=== PATIENT | female | born 1955 | race Caucasian/White ===

== ENCOUNTER → 2017-01-24 | Outpatient (CLI) | payer BC ==
--- NOTE | 2017-02-05 07:44 | MM ---
Reason for exam: screening (asymptomatic). Last mammogram was performed 1 year and 11 months ago. History: Patient is postmenopausal. Family history of breast cancer in 3 maternal aunts and breast cancer in paternal aunt. Physical Findings: A clinical breast exam by your physician is recommended on an annual basis and results should be correlated with mammographic findings. MG Screening Mammo w CAD Bilateral CC and MLO view(s) were taken. Prior study comparison: February 15, 2015, mammogram, performed at [facility]. January 29, 2013, mammogram, performed at [facility]. There are scattered fibroglandular densities. There is chronic nodularity bilaterally. No significant changes when compared with prior studies. ASSESSMENT: Benign, BI-RAD 2 RECOMMENDATION: Routine screening mammogram of both breasts in 1 year.
== END | disposition home or self-care (01) ==
LOC: RADMAMWWP 15:49
PROVIDERS: ATTEND Internal Medicine
DX: Z12.31 Encounter for screening mammogram for malignant neoplasm of breast (principal)

== ENCOUNTER → 2017-10-03 | Outpatient (CLI) | payer BC ==
[2017-10-03 10:53] LABS: HCT 38.1 % (34.0-46.0); HGB 12.7 gm/dL (11.4-16.0); MCH 31.4 pg (25.0-35.0); MCHC 33.3 g/dL (31.0-37.0); MCV 94.3 fL (80.0-100.0); Mean Platelet Volume 6.6; Platelet Count 330 k/uL (150-450); RBC 4.05 m/uL (3.80-5.40); RDW 13.2 % (11.5-15.5); WBC 6.6 k/uL (3.8-10.6)
[2017-10-03 11:01] LABS: Appearance,Urine Clear (Clear); Bilirubin,Urine Negative (Negative); Blood,Urine Negative (Negative); Color,Urine Light Yellow; Glucose,Urine (UA) Negative (Negative); Ketones,Urine Negative (Negative); Leukocyte Esterase,Urine Negative (Negative); Nitrite,Urine Negative (Negative); Protein,Urine Negative (Negative); Urobilinogen,Urine <2.0 mg/dL (<2.0)
[2017-10-03 11:10] LABS: Anion Gap 5 mmol/L; Blood Urea Nitrogen 15 mg/dL (7-17); Carbon Dioxide 28 mmol/L (22-30); Chloride 107 mmol/L (98-107); Glucose 93 mg/dL (74-99); Potassium 4.7 mmol/L (3.5-5.1); Sodium 140 mmol/L (137-145)
== END | disposition home or self-care (01) ==
LOC: LABPAT 10:12
PROVIDERS: ATTEND Urology
DX: Z01.812 Encounter for preprocedural laboratory examination (principal); N39.3 Stress incontinence (female) (male); R35.0 Frequency of micturition; R30.9 Painful micturition, unspecified; Z79.899 Other long term (current) drug therapy
CPT/HCPCS: 80048; 81003; 85027; 87086

== ENCOUNTER → 2017-10-06 | Outpatient (CLI) | payer BC | END | disposition home or self-care (01) | LOC: LABPAT 08:22 | PROVIDERS: ATTEND Urology | DX: Z01.818 Encounter for other preprocedural examination (principal) | CPT/HCPCS: 93005 ==

== ENCOUNTER 2017-10-10 08:22 | Day surgery (SDC) | payer BC ==
[2017-10-03 12:20] VITALS: BMI 32.2
[~2017-10-10 08:22] MED LIST: DEXAMETHASONE SOD PHOSPHATE 10 MG/ML 1 ML VIAL IV ONE; HYDROmorphone 0.5 MG/0.5 ML SYRINGE IVP PRN; LACTATED RINGERS 1,000 ML IV SCH; ONDANSETRON 4 MG/2 ML VIAL IVP ONE
[2017-10-10] MEDS ORDERED: SCOPOLAMINE 1.5MG/72HR PATCH TRANSDERM STA (08:32)
[2017-10-10] MEDS ORDERED: LACTATED RINGERS 1,000 ML IV ONE ×3 (08:36→11:06)
[2017-10-10] MEDS ORDERED: LIDOCAINE 1% 20 ML VIAL (10MG/ML) FOR IV START INTRADERMA ONE (08:37)
[2017-10-10] MEDS ORDERED: SUCCINYLCHOLINE CHLORIDE 100 MG/5 ML SYR IV ONE (10:25)
[2017-10-10] MEDS ORDERED: KETOROLAC 30 MG/ML 1 ML VIAL ONE (10:25)
[2017-10-10] MEDS ORDERED: PHENYLEPHRINE-0.9% NACL SYG 1 MG/10 ML SYRINGE ONE (10:25)
[2017-10-10] MEDS ORDERED: fentaNYL (PF) 50 MCG/ML 2 ML AMP ONE (10:25)
[2017-10-10] MEDS ORDERED: PROPOFOL 10 MG/ML 20 ML VIAL IV ONE (10:25)
[2017-10-10] MEDS ORDERED: ROCURONIUM BROMIDE 10 MG/ML 10 ML VIAL IV ONE (10:25)
[2017-10-10] MEDS ORDERED: LIDOCAINE 1% INJ 10MG/ML (20 ML MDV) ONE (10:25)
[2017-10-10] MEDS ORDERED: diphenhydrAMINE 50 MG/ML 1 ML VIAL ONE (10:25)
[2017-10-10] MEDS ORDERED: MIDAZOLAM 2 MG/2 ML VIAL ONE (10:25)
[2017-10-10] MEDS: ceFAZolin 1,000 MG in DEXTROSE/WATER 1 50ML.BAG IVPB ONE ×2 (10:30→10:37)
[2017-10-10] MEDS ORDERED: BACITRACIN 500 UNIT/GM OINT 28.4 GM TUBE TOPICAL ONE ×2 (10:39→10:47)
[2017-10-10] MEDS ORDERED: VASOPRESSIN 20 UNIT/ML 1 ML VIAL SQ ONE (10:40)
[2017-10-10] MEDS ORDERED: GENTAMICIN 80 MG in SODIUM CHLORIDE 0.9% 500 ML IRRIGATION ONE (10:41)
--- NOTE | 2017-10-10 11:16 | P.OP ---
Date of Procedure: 10/10/17 Preoperative Diagnosis: Stress urinary incontinence Postoperative Diagnosis: Same Procedure(s) Performed: Trans-obturator tape (obtyrx2) , cystoscopy Anesthesia: KATHE Surgeon: Chandan Matos Estimated Blood Loss (ml): 25 Pathology: none sent Condition: stable Disposition: PACU Indications for Procedure: The patient is a 62-year-old female with documented stress urinary incontinence who comes for a trans-obturator tape risk complications alternatives including the mesh controversy have been discussed Description of Procedure: The patient is brought to the operating suite she is given a successful general endotracheal anesthesia. She's placed lithotomy position with a sterile prep and drape. The labia are sewn laterally with 2-0 silk. A Engle catheters introduced sterilely. A vaginal speculum was placed. 2 incisions at the inguinal crease at the level clitoris bilaterally are made. I then elevated the anterior vaginal mucosa off the submucosa with a mixture of 20 units of Pitressin and 200 mL of saline. 10 mL was used. A midline suburethral incision is made. I dissect lateral to the bladder neck bilaterally with Metzenbaum scissors. I then pass the graft introducers through the inguinal incisions into the obturator foramen around the issue pubic ramus into the vaginal space bilaterally making sure not to buttonhole the vagina. I then it perform cystoscopy to make sure there is no evidence of penetration of the introducer into the bladder and there is none. I then attached the grafted introducers and pull the graft back through the obturator foramen and inguinal crease. The graft lay in the mid urethra nicely. I removed the redundant graft in sheathing. The vaginal mucosa was closed with 3-0 Vicryl. The inguinal incisions are closed with 4-0 Vicryl. The urine remains clear. Blood loss is 25 mL. The patient tolerated the procedure well awake and returned recovery room good condition. She'll be placed in the hospital postoperatively.
[2017-10-10] MEDS ORDERED: MORPHINE SULFATE 4 MG/ML SYRINGE IVP ONE (11:53)
[2017-10-10] MEDS ORDERED: ONDANSETRON 4 MG/2 ML VIAL IVP ONE (11:53)
[2017-10-10] MEDS: DEXTROSE 5%-0.45% NACL 1,000 ML IV SCH (12:42)
[2017-10-10] MEDS: METHIMAZOLE 5 MG TAB PO SCH (22:05)
[2017-10-10] MEDS: KETOROLAC 30 MG/ML 1 ML VIAL IVP PRN (22:09)
[2017-10-11] MEDS: DEXTROSE 5%-0.45% NACL 1,000 ML IV SCH (01:50)
[2017-10-11 04:23] VITALS: TEMP 97.9
[2017-10-11] MEDS ORDERED: PANTOPRAZOLE 40 MG TABLET PO SCH (09:00)
[2017-10-11] MEDS ORDERED: LISINOPRIL 10 MG TAB PO SCH (09:00)
[2017-10-11 09:11] VITALS: BP 114/61; PULSE 60; RESP 17
[2017-10-11] MEDS: METHIMAZOLE 5 MG TAB PO SCH (09:58)
[2017-10-11] MEDS: KETOROLAC 30 MG/ML 1 ML VIAL IVP PRN (10:03)
--- NOTE | 2017-10-11 11:52 | P.DS ---
Providers Attending physician: Chandan Matos Primary care physician: [facility] Course: The patient is 62 and underwent trans-obturator tape for her stress urinary incontinence 10/10/2017 she had an uneventful postoperative course. The catheter and packing were removed this morning. She has voided without difficulty. Her residuals are minimal. Her pain is minimal. Her vital signs are stable. She'll be discharged home. Postoperative instructions have been given. She'll be seen in the office in one week. He has been given a prescription of [place] but take it as needed. Patient Condition at Discharge: Good Plan - Discharge Summary Discharge Rx Participant: No New Discharge Prescriptions: No Action Cholecalciferol (Vitamin D3) [Vitamin D3] 2,000 unit PO DAILY Calcium Carbonate/Vitamin D3 [Calcium 600-Vit D3 200 Tablet] 2 each PO DAILY Aspirin 81 mg PO DAILY Methimazole [Tapazole] 5 mg PO BID Omeprazole Magnesium [PriLOSEC OTC] 20 mg PO DAILY Lisinopril [Zestril] 10 mg PO DAILY Discharge Medication List Aspirin 81 mg PO DAILY 10/03/17 [History] Calcium Carbonate/Vitamin D3 [Calcium 600-Vit D3 200 Tablet] 2 each PO DAILY [History] Cholecalciferol (Vitamin D3) [Vitamin D3] 2,000 unit PO DAILY 10/03/17 [History] Lisinopril [Zestril] 10 mg PO DAILY 10/03/17 [History] Methimazole [Tapazole] 5 mg PO BID 10/03/17 [History] Omeprazole Magnesium [PriLOSEC OTC] 20 mg PO DAILY 10/03/17 [History] Follow up Appointment(s)/Referral(s): Chandan Matos MD [STAFF PHYSICIAN] - 1 Week Discharge Disposition: HOME SELF-CARE
== END 2017-10-11 12:40 | disposition home or self-care (01) ==
LOC: OR 08:22 → EDSTATUS 10:15 → 6PED 11:06 → OR 10-11 12:40
PROVIDERS: ATTEND Urology
DX: N39.3 Stress incontinence (female) (male) (principal); I10 Essential (primary) hypertension; K21.9 Gastro-esophageal reflux disease without esophagitis; M81.0 Age-related osteoporosis without current pathological fracture; Z79.82 Long term (current) use of aspirin; Z79.899 Other long term (current) drug therapy; Z88.2 Allergy status to sulfonamides
CPT/HCPCS: 57288; C1771; J2250; J2270; J1200; J1580; J1100; J2405; J2001; J3010; J1885 ×2; J0690; J2370; J0330; J2704

== ENCOUNTER → 2018-10-11 | Day surgery (SDC) | payer BC ==
[2018-10-10 11:25] VITALS: BMI 32.8
[~2018-10-11] MED LIST changes: -DEXAMETHASONE SOD PHOSPHATE 10 MG/ML 1 ML VIAL IV ONE; -HYDROmorphone 0.5 MG/0.5 ML SYRINGE IVP PRN; +LIDOCAINE 1% 20 ML VIAL (10MG/ML) FOR IV START INTRADERMA PRN; -ONDANSETRON 4 MG/2 ML VIAL IVP ONE; +PROPOFOL 10 MG/ML 20 ML VIAL IV ONE
[2018-10-11 09:45] VITALS: RESP 16; TEMP 98.8
--- NOTE | 2018-10-11 10:33 | P.PCN ---
Date of Procedure: 10/11/18 Procedure(s) Performed: BRIEF HISTORY: Patient is a 63-year-old, pleasant, white female, scheduled for an upper endoscopy as a part of long-standing history of GERD and surveillance of Minaya's esophagus. PROCEDURE PERFORMED: Esophagogastroduodenoscopy with biopsy. PREOPERATIVE DIAGNOSIS: GERD/Minaya's esophagus. IV sedation per anesthesia. PROCEDURE: After informed consent was obtained, the patient was brought into the endoscopy unit. IV sedation was administered by Anesthesia under continuous monitoring. Initially the Olympus GIF-140 video endoscope was inserted into the mouth. Esophagus intubated without any difficulty. It was gradually advanced into the stomach and duodenum and carefully examined. The bulb and the second part of the duodenum appeared normal. The scope at this time was withdrawn to the stomach, adequately insufflated with air, and upon careful examination, mucosa of the antrum, body, cardia and the fundus appeared normal. Multiple gastric polyps noted in the body of the stomach which were biopsied. The scope was then withdrawn into the esophagus. The GE junction was located at 39 cm from the incisors. There was a short island of Minaya's appearing mucosa just proximal to the GE junction measuring 2-3 mm which was biopsied. The rest of the esophagus appeared normal. There were no erosions or ulcerations seen and the patient tolerated the procedure well. IMPRESSION: 1. Short segment Minaya's esophagus status post biopsy. 2. Multiple small gastric polyps 3. Moderate size hiatal hernia. RECOMMENDATIONS: The findings of this examination were discussed with the patient well as her family. She was advised to follow with the biopsy results. She will continue with Prilosec 20 mg daily and follow antireflux measures. If the biopsy confirms presence of Minaya's esophagus, she can have a repeat upper endoscopy in 2-3 years.
[2018-10-11 10:54] VITALS: BP 129/77; PULSE 61
== END | disposition home or self-care (01) ==
LOC: ORWHC2ENDO 09:02
PROVIDERS: ATTEND Internal Medicine Gastroenterology
DX: K22.70 Barrett's esophagus without dysplasia (principal); K31.7 Polyp of stomach and duodenum; K44.9 Diaphragmatic hernia without obstruction or gangrene; I10 Essential (primary) hypertension; Z88.2 Allergy status to sulfonamides; Z79.899 Other long term (current) drug therapy; Z79.82 Long term (current) use of aspirin; Z96.642 Presence of left artificial hip joint
CPT/HCPCS: 88305; 43239; J2704

== ENCOUNTER → 2019-03-06 | Outpatient (CLI) | payer BC ==
[2019-03-06 09:26] LABS: HCT 38.5 % (34.0-46.0); HGB 12.7 gm/dL (11.4-16.0); MCV 96.9 fL (80.0-100.0); Mean Platelet Volume 6.4; Platelet Count 363 k/uL (150-450); RBC 3.98 m/uL (3.80-5.40); RDW 13.4 % (11.5-15.5)
[2019-03-06 09:40] LABS: African American GFR (CKD) >90 (>60 ml/min/1.73 sqM); Anion Gap 7 mmol/L; Blood Urea Nitrogen 10 mg/dL (7-17); Carbon Dioxide 24 mmol/L (22-30); Chloride 110 mmol/L (98-107); Potassium 4.4 mmol/L (3.5-5.1); Sodium 141 mmol/L (137-145)
== END | disposition home or self-care (01) ==
LOC: LABWHC1 08:55
PROVIDERS: ATTEND Internal Medicine Interventional Cardiology
DX: Z01.812 Encounter for preprocedural laboratory examination (principal); I10 Essential (primary) hypertension; E78.1 Pure hyperglyceridemia
CPT/HCPCS: 36415; 80051; 82565; 84520; 85027

== ENCOUNTER 2019-03-11 10:56 | Day surgery (SDC) | payer BC ==
[2019-03-06 09:14] VITALS: BMI 32.2
[~2019-03-11 10:56] MED LIST changes: +ALPRAZolam 0.25 MG TAB PO PRN; +ALPRAZolam 0.5 MG TAB PO PRN; +ASPIRIN 325 MG TAB PO STA; +ATORVASTATIN 80 MG TAB PO STA; -LACTATED RINGERS 1,000 ML IV SCH; -LIDOCAINE 1% 20 ML VIAL (10MG/ML) FOR IV START INTRADERMA PRN; +NITROGLYCERIN SL TABS 0.4 MG TAB SUBLINGUAL PRN; -PROPOFOL 10 MG/ML 20 ML VIAL IV ONE; +SODIUM CHLORIDE 0.9% 1,000 ML in EMPTY BAG 1 BAG IV ONE
[2019-03-11 11:45] VITALS: PULSE 62; TEMP 98.3
[2019-03-11] MEDS ORDERED: MIDAZOLAM (PF) 2 MG/2 ML VIAL IV ONE (12:32)
[2019-03-11] MEDS ORDERED: LIDOCAINE 1% INJ 10MG/ML (20 ML MDV) SQ ONE (12:34)
[2019-03-11] MEDS ORDERED: VERAPAMIL SYRINGE (5 MG/10 ML) IV ONE (12:35)
[2019-03-11] MEDS ORDERED: IOPAMIDOL-370 100ML BTL INJ ONE (12:44)
[2019-03-11] MEDS ORDERED: RX INFO: IV CONTRAST WAS GIVEN 1 EACH MISC MISCELLANE PRN (12:50)
--- NOTE | 2019-03-11 12:55 | P.PCN ---
Date of Procedure: 03/11/19 Operative Findings: CARDIAC CATHETERIZATION PERFORMING PHYSICIAN: Bobby Mcfarland MD, RPVI PROCEDURE PERFORMED: 1. Selective right and left coronary angiogram 2. Left heart catheterization INDICATION: This is a 63-year-old female patient with hypertension who was experiencing symptoms of upper back discomfort with exertion concerning for severe coronary artery disease. She was brought today to undergo a heart catheterization to rule out severe CAD. COMPLICATION: None APPROACH: Right radial artery PROCEDURE DESCRIPTION: After obtaining an informed consent, the patient was brought to cardiac laboratory inspector. Local anesthesia was performed using lidocaine subcutaneously. The right radial artery was cannulated using Seldinger technique, the guidewire passed easily, following that we advanced a 5-Wolof sheath dilator assembly, the wire and dilator were removed and sheath was flushed. Following that, 2 mg of verapamil along with 5000 unit heparin were given. Selective right and left coronary angiogram using a 6-Wolof JR4 and JL 3.5 catheters. Following that we did left heart catheterization using 6-Wolof pigtail catheter. The procedure was completed there was no complication. SELECTIVE CORONARY ANGIOGRAM: The right coronary artery: Is a medium caliber vessel and nondominant vessel. Its angiographically normal. Left main: It is angiographically normal. The left circumflex: It is a large caliber vessel and its a dominant vessel. Its angiographically normal. The left circumflex gives rises into the first and second OM branches and both appeared to be angiographically normal distally bifurcates into PDA and PLV branches and both appeared to be angiographically normal. The left anterior descending artery: The LAD is angiographically normal in the proximal to midportion gives rises into a large diagonal branch which seems to be angiographically normal. HEMODYNAMICS: The LVEDP was 18 mmHg without a gradient across aortic valve CONCLUSION: #1 normal coronary angiogram POSTPROCEDURE MANAGEMENT: Medical treatment Follow-up with the patient
[2019-03-11] MEDS ORDERED: SODIUM CHLORIDE 0.9% 1,000 ML IV SCH (13:00)
[2019-03-11 16:45] VITALS: RESP 18
[2019-03-11 18:11] VITALS: BP 164/77
== END 2019-03-11 18:00 | disposition home or self-care (01) ==
LOC: CATHCVL 10:56
PROVIDERS: ATTEND Internal Medicine Interventional Cardiology
DX: R07.89 Other chest pain (principal); I10 Essential (primary) hypertension; M54.89 Other dorsalgia; E78.5 Hyperlipidemia, unspecified; Z79.82 Long term (current) use of aspirin; Z79.899 Other long term (current) drug therapy; Z88.2 Allergy status to sulfonamides
CPT/HCPCS: 93458; C1769 ×2; C1894; J2001; J1644; Q9967; J2250

== ENCOUNTER → 2020-10-20 | Outpatient (CLI) | payer MEDICARE ==
--- NOTE | 2020-10-21 10:34 | MM ---
Reason for exam: screening (asymptomatic). Last mammogram was performed 3 years and 9 months ago. History: Patient is postmenopausal. Family history of breast cancer in 3 maternal aunts and breast cancer in paternal aunt. Physical Findings: A clinical breast exam by your physician is recommended on an annual basis and results should be correlated with mammographic findings. MG 3D Screening Mammo W/Cad Bilateral CC and MLO view(s) were taken. Prior study comparison: January 24, 2017, bilateral MG screening mammo w CAD. February 15, 2015, mammogram, performed at [facility]. The breast tissue is heterogeneously dense. This may lower the sensitivity of mammography. There is no discrete abnormality. No significant changes when compared with prior studies. ASSESSMENT: Negative, BI-RAD 1 RECOMMENDATION: Routine screening mammogram of both breasts in 1 year.
== END | disposition home or self-care (01) ==
LOC: RADMAMWWP 09:50
PROVIDERS: ATTEND Internal Medicine
DX: Z12.31 Encounter for screening mammogram for malignant neoplasm of breast (principal); Z78.0 Asymptomatic menopausal state; Z80.3 Family history of malignant neoplasm of breast
CPT/HCPCS: 77063; 77067

== ENCOUNTER 2022-05-05 08:27 | Day surgery (SDC) | payer MEDICARE ==
[2022-05-03 10:24] VITALS: BMI 32.2
[~2022-05-05 08:27] MED LIST changes: -ALPRAZolam 0.25 MG TAB PO PRN; -ALPRAZolam 0.5 MG TAB PO PRN; -ASPIRIN 325 MG TAB PO STA; -ATORVASTATIN 80 MG TAB PO STA; +LACTATED RINGERS 1,000 ML IV SCH; -NITROGLYCERIN SL TABS 0.4 MG TAB SUBLINGUAL PRN; -SODIUM CHLORIDE 0.9% 1,000 ML in EMPTY BAG 1 BAG IV ONE
[2022-05-05 08:47] VITALS: RESP 16; TEMP 97
[2022-05-05] MEDS ORDERED: PROPOFOL 10 MG/ML 20 ML VIAL IV ONE (09:07)
[2022-05-05] MEDS ORDERED: LIDOCAINE 2% INJ 20 MG/ML (2 ML VIAL) ONE (09:07)
--- NOTE | 2022-05-05 09:20 | P.PCN ---
Date of Procedure: 05/05/22 Procedure(s) Performed: BRIEF HISTORY: Patient is a 67-year-old, pleasant, white female scheduled for an upper endoscopy as a part of evaluation of long-standing history of GERD and Minaya's esophagus.. She is presently on omeprazole 20 mg daily PROCEDURE PERFORMED: Esophagogastroduodenoscopy with biopsy. PREOPERATIVE DIAGNOSIS: . GERD and Minaya's esophagus IV sedation per anesthesia. PROCEDURE: After informed consent was obtained, the patient was brought into the endoscopy unit. IV sedation was administered by Anesthesia under continuous monitoring. Initially the Olympus GIF-140 video endoscope was inserted into the mouth. Esophagus intubated without any difficulty. It was gradually advanced into the stomach and duodenum and carefully examined. The bulb and the second part of the duodenum appeared normal. The scope at this time was withdrawn to the stomach, adequately insufflated with air, and upon careful examination, mucosa of the antrum, appeared normal. There were multiple gastric polyps noted in the body and fundus of the stomach which were biopsied. Mucosa of the body, cardia and the fundus appeared normal. The scope was then withdrawn into the esophagus. small hiatal hernia noted. The GE junction was located at 35 cm from the incisors. there were 2 tongues of Minaya's appearing mucosa extending 3-4 mm proximal to the GE junction which were biopsied. The rest of the esophagus appeared normal. There were no erosions or ulcerations seen and the patient tolerated the procedure well. IMPRESSION: 1. Small hiatal hernia and short segment Minaya's esophagus status post biopsy 2. Multiple gastric polyps status post biopsy RECOMMENDATIONS: The findings of this examination were discussed with the patient . as well as her family. She was advised to follow with the biopsy results. Continue with omeprazole 20 mg daily and follow antireflux measures. Recommend repeat upper endoscopy in 3 years.
[2022-05-05 09:51] VITALS: BP 145/63; PULSE 59
== END 2022-05-05 10:06 | disposition home or self-care (01) ==
LOC: ORWHC2ENDO 08:27
PROVIDERS: ATTEND Internal Medicine Gastroenterology
DX: K22.70 Barrett's esophagus without dysplasia (principal); I10 Essential (primary) hypertension; K44.9 Diaphragmatic hernia without obstruction or gangrene; K31.7 Polyp of stomach and duodenum; K29.50 Unspecified chronic gastritis without bleeding; K21.00 Gastro-esophageal reflux disease with esophagitis, without bleeding; Z98.890 Other specified postprocedural states
CPT/HCPCS: 88305; 43239; J2704; J2001

== ENCOUNTER → 2022-06-28 | Outpatient (CLI) | payer MEDICARE ==
--- NOTE | 2022-06-28 16:27 | US ---
EXAMINATION TYPE: US thyroid st tissue head/neck DATE OF EXAM: 06/28/2022 COMPARISON: NONE CLINICAL HISTORY: E04.2 NONTOXIC MULTINODULAR GOITER. Goiter. GLAND SIZE: Right Lobe: 4.3 x 2.1 x 1.8 cm Overall Parenchyma: heterogenous Left Lobe: 4.7 x 1.6 x 1.4 cm Overall Parenchyma: heterogeneous Isthmus Thickness: 0.33 cm NODULES RIGHT: # of nodules measured on right: 2 1. 0.7 X 0.6 x 0.6 cm, mid mid, solid or almost completely solid, hypoechoic nodule, which is as wi de as it is tall, with smooth margins, without echogenic foci. Prior size: No prior 2. 2.2 X 1.9 x 1.8 cm, lower mid, solid or almost completely solid, hypoechoic nodule, which is wid er than tall, with ill-defined margins, with echogenic foci. TR 4. Prior size: No prior LEFT: # of nodules measured on left: 2 1. 1.2 X 1.3 x 0.8 cm, lower lateral, solid or almost completely solid, hypoechoic nodule, which is wider than tall, with ill-defined margins, with echogenic foci. Prior size: No prior 2. 0.8 X 1.0 x 0.8 cm, mid mid, solid or almost completely solid, isoechoic nodule, which is wider than tall, with ill-defined margins, without echogenic foci. Prior size: No prior ISTHMUS: # of nodules measured in the isthmus: 0 Bilateral neck scanned, no evidence of lymphadenopathy. IMPRESSION: Moderately suspicious nodule right lobe thyroid. Fine-needle aspiration recommended. 2017 ACR TI-RADS LEVEL: TR-RADS 4 - Moderately Suspicious: Follow if > 1 cm, FNA if > 1.5 cm *Highest TI-RADS level nodule reported
--- NOTE | 2022-07-03 11:15 | MM ---
Reason for Exam: Screening (asymptomatic). Last mammogram was performed 1 year(s) and 8 month(s) ago. Patient History: Menarche at age 12. First Full-Term at age 24. Hysterectomy at age 58. Postmenopausal. Paternal aunt had breast cancer. Maternal aunt had breast cancer. Maternal aunt had breast cancer. Maternal aunt had breast cancer. Risk Values: Sonia 5 year model risk: 1.5%. NCI Lifetime model risk: 5.2%. Prior Study Comparison: 02/15/2015 Screening Mammogram, [facility]. 01/24/2017 Bilateral Screening Mammogram, [facility]. 10/20/2020 Bilateral Screening Mammogram, [facility]. Tissue Density: The breast tissue is heterogeneously dense. This may lower the sensitivity of mammography. Findings: Analyzed By CAD. Pattern is stable. Chronic nodule with circumscribed margins in the upper outer mid left breast. Chronic nodularities in the right breast. No suspicious groups of microcalcifications, spiculated or lobular masses, architectural distortion or other secondary signs of malignancy are mammographically apparent. Overall Assessment: Benign, BI-RAD 2 Management: Screening Mammogram of both breasts in 1 year. A negative mammogram report should not preclude additional follow up of suspicious palpable abnormalities. Patient should continue monthly self breast exam. A clinical breast exam by your physician is recommended on an annual basis and results should be correlated with mammographic findings. Electronically signed and approved by: Manjeet Pillai D.O. Radiologis
== END | disposition home or self-care (01) ==
LOC: RADMAMWWP 15:09
PROVIDERS: ATTEND Family Medicine
DX: Z12.31 Encounter for screening mammogram for malignant neoplasm of breast (principal); E04.2 Nontoxic multinodular goiter; Z78.0 Asymptomatic menopausal state; Z80.3 Family history of malignant neoplasm of breast
CPT/HCPCS: 76536; 77063; 77067

== ENCOUNTER 2022-07-31 12:44 | Day surgery (SDC) | payer MEDICARE ==
[2022-07-31 13:05] VITALS: BP 157/87; PULSE 72; RESP 16; TEMP 97.7
--- NOTE | 2022-08-02 11:46 | US ---
ULTRASOUND GUIDED FNA THYROID BIOPSY: CLINICAL HISTORY: Right and left thyroid nodule FINDINGS: The procedure was explained to the patient. The risks, complications, benefits and alternatives were discussed and any questions were answered. Informed consent was obtained. Patient was placed supin e on the ultrasound table and prepped and draped in the usual sterile fashion. Utilizing a 25 gauge needle, five passes were made into the right thyroid nodule. The left thyroid nodule was not safely accessible. Patient was stable throughout the procedure. Pathology is pending. All elements of maximal barrier technique were utilized. IMPRESSION: 1. Successful ultrasound guided FNA thyroid biopsy right thyroid nodule. 2. Due to the patient's anatomy left thyroid nodule was not safely accessible for biopsy.
== END 2022-07-31 14:19 | disposition home or self-care (01) ==
LOC: RADPROMAIN 12:44
PROVIDERS: ATTEND Family Medicine
DX: E04.2 Nontoxic multinodular goiter (principal)
CPT/HCPCS: 10005; 88173; 88305

== ENCOUNTER → 2022-12-18 | Outpatient (CLI) | payer MEDICARE ==
[~2022-12-18] MED LIST changes: +DENOSUMAB 60 MG/ML 1 ML SYRINGE SQ NR; -LACTATED RINGERS 1,000 ML IV SCH
[2022-12-18 09:57] VITALS: BP 157/89; PULSE 69; RESP 16; TEMP 97.6
== END ==
LOC: PROCWHC3 09:43
PROVIDERS: ATTEND Family Medicine
DX: M81.0 Age-related osteoporosis without current pathological fracture (principal)
CPT/HCPCS: 96372; J0897

== ENCOUNTER → 2023-06-12 | Outpatient (CLI) | payer MEDICARE ==
--- NOTE | 2023-06-12 21:40 | US ---
EXAMINATION TYPE: US kidneys/renal and bladder DATE OF EXAM: 06/12/2023 COMPARISON: NONE CLINICAL INDICATION: Female, 68 years old with history of R31.9 HEMATURIA, UNSPECIFIED; Hematuria. Hx bladder suspension, surgery on ureter. EXAM MEASUREMENTS: Right Kidney: 11.3 x 5.8 x 4.8 cm Left Kidney: 10.8 x 5.6 x 6.1 cm Right Kidney: Renal pelvis appears dilated. Left Kidney: No hydronephrosis or masses seen Bladder: Appears wnl Bilateral Jets seen: Yes IMPRESSION: 1. Mild prominence of the renal pelvis. This may be due to an extrarenal pelvis. Hydronephrosis is no t identified.
== END | disposition home or self-care (01) ==
LOC: RADUSWWP 09:30
PROVIDERS: ATTEND Family Medicine
DX: R31.9 Hematuria, unspecified (principal); N28.89 Other specified disorders of kidney and ureter
CPT/HCPCS: 76770

== ENCOUNTER → 2023-07-30 | Outpatient (CLI) | payer MEDICARE ==
--- NOTE | 2023-07-30 14:13 | US ---
EXAMINATION TYPE: US thyroid st tissue head/neck DATE OF EXAM: 07/30/2023 COMPARISON: NONE CLINICAL INDICATION: Female, 68 years old with history of E04.1 Nontoxc single thyroid nodule; f/u ex am, h/o FNA GLAND SIZE: Right Lobe: 4.1 x 1.5 x 2.2 cm Overall Parenchyma: heterogenous Left Lobe: 4.1 x 1.6 x 1.9 cm Overall Parenchyma: heterogenous Isthmus Thickness: 0.5 cm NODULES RIGHT: # of nodules measured on right: multiple, measured largest - previous FNA 1. 1.6 X 1.5 x 1.4 cm, mid , solid or almost completely solid, hypoechoic TR 4 nodule, which is marcelo ler than wide, with smooth margins, without echogenic foci. Prior size: 2.2 x 1.8 x 1.9 cm LEFT: # of nodules measured on left: multiple, measured largest 1. 1.0 X 1.0 x 0.5 cm, lower , solid or almost completely solid, hypoechoic TR 4 nodule, which is w ider than tall, with smooth margins, without echogenic foci. Prior size: 1.2 x 0.8 x 1.3 cm ISTHMUS: # of nodules measured in the isthmus: 0 Bilateral neck scanned, no evidence of lymphadenopathy. IMPRESSION: A dominant TR4 nodule on either side. Both of these show slight interval decrease in size measuring u p to 1.6 cm now on the right and 1.0 cm on the left. 2017 ACR TI-RADS LEVEL: TR-RADS 4 - Moderately Suspicious: Follow if > 1 cm, FNA if > 1.5 cm *Highest TI-RADS level nodule reported
== END | disposition home or self-care (01) ==
LOC: RADUSWWP 13:04
PROVIDERS: ATTEND Family Medicine
DX: E04.2 Nontoxic multinodular goiter (principal)
CPT/HCPCS: 76536

== ENCOUNTER → 2023-07-30 | Outpatient (CLI) | payer MEDICARE ==
--- NOTE | 2023-07-31 09:36 | MM ---
Reason for Exam: Screening (asymptomatic). Last mammogram was performed 1 year(s) and 1 month(s) ago. Patient History: Menarche at age 12. First Full-Term at age 24. Hysterectomy at age 58. Postmenopausal. Paternal aunt had breast cancer, age 55. Maternal aunt had breast cancer, age 60. Maternal aunt had breast cancer, age 65. Maternal aunt had breast cancer. Risk Values: Sonia 5 year model risk: 1.5%. NCI Lifetime model risk: 5.0%. Prior Study Comparison: 01/24/2017 Bilateral Screening Mammogram, [facility]. 10/20/2020 Bilateral Screening Mammogram, [facility]. 06/28/2022 Bilateral MG 3D screening mammo w/cad, [facility]. Tissue Density: The breast tissue is heterogeneously dense. This may lower the sensitivity of mammography. Findings: Analyzed By CAD. There is no suspicious group of microcalcifications or new suspicious mass. Overall Assessment: Incomplete: need additional imaging evaluation, BI-RAD 0 Management: Diagnostic Breast Ultrasound of the left breast. Ultrasound imaging of patient's area of lump. Area is not well delineated on mammography. [facility] will attempt to contact patient to return for supplemental views and ultrasound if indicated. Patient should continue monthly self-breast exams. A clinical breast exam by your physician is recommended on an annual basis. This exam should not preclude additional follow-up of suspicious palpable abnormalities. Note on Sonia scores and lifetime risk: 1. A Sonia score greater than 3% is considered moderate risk. If this is the case, consider specialist referral to assess eligibility for a risk reducing agent. 2. If overall lifetime risk for the development of breast cancer is 20% or higher, the patient may qualify for future screening with alternating mammogram and breast MRI. Electronically signed and approved by: Franco Fernández DO
== END | disposition home or self-care (01) ==
LOC: RADMAMWWP 13:02
PROVIDERS: ATTEND Family Medicine
DX: Z12.31 Encounter for screening mammogram for malignant neoplasm of breast (principal); Z80.3 Family history of malignant neoplasm of breast; Z78.0 Asymptomatic menopausal state
CPT/HCPCS: 77063; 77067

== ENCOUNTER → 2023-08-07 | Outpatient (CLI) | payer MEDICARE | END | disposition home or self-care (01) | LOC: RADUSWWP 10:15 | PROVIDERS: ATTEND Family Medicine | DX: Z53.9 Procedure and treatment not carried out, unspecified reason (principal) ==

== ENCOUNTER → 2024-05-12 | Outpatient (CLI) | payer MEDICARE ==
[2024-05-12] MEDS: DENOSUMAB 60 MG/ML 1 ML SYRINGE SQ NR (12:10)
[2024-05-12 12:12] VITALS: BP 117/79; PULSE 62; RESP 16; TEMP 98
== END ==
LOC: PROCWHC3 11:58
PROVIDERS: ATTEND Family Medicine
DX: M81.0 Age-related osteoporosis without current pathological fracture (principal)
CPT/HCPCS: 96372